=== PATIENT | female | born 1985 | race Caucasian/White ===

== ENCOUNTER 2017-02-28 12:13 | Emergency (ER) | payer MEDICAID, OTHER ==
[2017-02-28 12:26] VITALS: O2SAT 100
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
--- NOTE | 2017-02-28 14:07 | RAD ---
HISTORY: chest pain COMPARISON: None available TECHNIQUE: Chest PA and lateral FINDINGS: LUNGS: No focal consolidation. Please note that chest x-ray has limited sensitivity for the detection of pulmonary masses. PLEURA: No significant pleural effusion identified. No definite pneumothorax . CARDIOVASCULAR: The cardiomediastinal silhouette appears within normal limits of size. OSSEOUS STRUCTURES: No acute osseous abnormality identified. VISUALIZED UPPER ABDOMEN: Unremarkable. OTHER FINDINGS: None. IMPRESSION: No focal consolidation, significant pleural effusion, or definite pneumothorax identified.
[2017-02-28 14:12] VITALS: BP 104/60; PULSE 59; RESP 16; TEMP 98
--- NOTE | 2017-02-28 15:54 | RAD ---
PROCEDURE: Radiographs of the Right Shoulder HISTORY: pain r/o fx COMPARISON: No prior. FINDINGS: BONES: . No fracture. JOINTS: . Glenohumeral and acromioclavicular joints preserved. No osteoarthritis. The right acromioclavicular joint space appears wider than typically seen at approximately 9 to 10 mm. The frontal chest x-ray does not include the left comparison acromioclavicular joint space No superior inferior lateral clavicular offset SOFT TISSUES: Normal. OTHER FINDINGS: None. IMPRESSION: Right acromioclavicular joint space appears wide -a superior-inferior displacement suggested. No comparison of the left acromioclavicular joint space is available. Correlate clinically with any potential sprain here -the soft tissues do not appear particularly increasing density . Is maybe a top normal variant for this patient The right glenohumeral joint appears normal.
--- NOTE | 2017-03-01 12:16 | CARD ---
APPROVED REPORT EKG Measurement Heart [id number] <Conclusion> Sinus bradycardia with sinus arrhythmia Otherwise normal ECG
== END 2017-02-28 14:23 | disposition home or self-care (01) ==
LOC: C.ER 12:13
DX: R07.9 Chest pain, unspecified (principal); F41.9 Anxiety disorder, unspecified; S16.1XXA Strain of muscle, fascia and tendon at neck level, initial encounter; V09.9XXA Pedestrian injured in unspecified transport accident, initial encounter
CPT/HCPCS: 71020; 73030; 93005; 96372; 99284; J1885

== ENCOUNTER 2018-08-07 20:15 | Emergency (ER) | payer OTHER ==
[2018-08-07 20:49] VITALS: TEMP 98.1
--- NOTE | 2018-08-07 22:24 | C.PDOC ---
History Of Present Illness 32 year old female, who is s/p abdominoplasty in 06/2018 in [place], presents to the ED for wound check. Patient states she noticed a small area of the incision site appeared opened and was draining with a suture protruding from the wound. Patient denies fever, chills, and pain. Time Seen by Provider: 08/07/18 21:53 Chief Complaint (Nursing): Abnormal Skin Integrity History Per: Patient History/Exam Limitations: no limitations Onset/Duration Of Symptoms: Hrs Current Symptoms Are (Timing): Still Present Quality Of Symptoms: Draining. denies: Painful Additional History Per: Patient Past Medical History Reviewed: Historical Data, Nursing Documentation, Vital Signs Vital Signs: Last Vital Signs Temp 98.1 F 08/07/18 20:44 Pulse 71 08/07/18 20:44 Resp 14 08/07/18 20:44 BP 108/75 08/07/18 20:44 Pulse Ox 99 08/07/18 20:44 - Medical History PMH: Denies: Diabetes, Hepatitis, HIV, HTN, Seizures, Sexually Transmitted Disease Surgical History: No Surg Hx Family History: States: Unknown Family Hx - Social History Hx Alcohol Use: No Hx Substance Use: No - Immunization History Hx Tetanus Toxoid Vaccination: No Hx Influenza Vaccination: No Hx Pneumococcal Vaccination: No Review Of Systems Constitutional: Negative for: Fever, Chills Skin: Positive for: Other (abdominoplasty incision open and drainig, with suture protruding ) Physical Exam - Physical Exam Appears: Non-toxic, No Acute Distress Skin: Normal Color, Warm, Dry, Other (surgical incision noted to suprapubic area with very small punctate area of open wound with small piece of suture visualized at the opening. Wound apears superficial, non-draining, nonfluctuant with no erythema, warmth or tenderness ) Gastrointestinal/Abdominal: Soft, No Tenderness, No Guarding, No Rebound Extremity: Normal ROM Neurological/Psych: Oriented x3, Normal Speech, Normal Cognition ED Course And Treatment O2 Sat by Pulse Oximetry: 99 (on RA) Pulse Ox Interpretation: Normal Progress Note: I was able to remove the piece of suture that was present in the wound. The wound remains dry with no bleeding, discharge or signs of infection. Patient is resting comfortably, showing no signs of distress and is stable for discharge. She is advised to continue wound care and follow up with her PMD with in 1-2 days for further evaluation. Disposition Counseled Patient/Family Regarding: Diagnosis, Need For Followup - Disposition Referrals: [facility] [Outside] Disposition: HOME/ ROUTINE Disposition Time: 22:22 Condition: STABLE Additional Instructions: Please follow up in clinic/ Sigue en clinica Return to ER if worse/ Regresa si se empeora Instructions: Surgical Wound (DC) Forms: [employer] (Zimbabwean) Print Language: ALBANIAN - Clinical Impression Clinical Impression: Visit for wound check - PA / [employer] TRANSFER OPERATOR / Resident Statement MD/DO has reviewed & agrees with the documentation as recorded. - Scribe Statement The provider has reviewed the documentation as recorded by the Scribe (Malena Means) All medical record entries made by the Scribe were at my direction and personally dictated by me. I have reviewed the chart and agree that the record accurately reflects my personal performance of the history, physical exam, medical decision making, and the department course for this patient. I have also personally directed, reviewed, and agree with the discharge instructions and disposition.
[2018-08-07 23:08] VITALS: BP 128/78; PULSE 88; RESP 20
[2018-08-08 05:35] VITALS: O2SAT 99
== END 2018-08-07 22:45 | disposition home or self-care (01) ==
LOC: C.ER 20:15
DX: Z48.00 Encounter for change or removal of nonsurgical wound dressing (principal)